=== PATIENT | female | born 1960 | race Caucasian/White ===

== ENCOUNTER → 2021-02-15 01:46 | Outpatient (CLI) | payer BC, SELFPAY ==
[2021-02-15 19:55] LABS: SARS-CoV-2 RNA PCR Negative
== END ==
PROVIDERS: PCP Family Medicine; Visit Provider Internal Medicine Gastroenterology
DX: Z01.812 Encounter for preprocedural laboratory examination (principal); Z20.822 Contact with and (suspected) exposure to COVID-19
CPT/HCPCS: C9803; U0003; U0005

== ENCOUNTER 2021-02-18 03:05 | Day surgery (SDC) | payer BC, SELFPAY ==
[2021-02-06 15:00] VITALS: BMI 29.4
[2021-02-18 06:19] VITALS: BP 143/86; PULSE 75; RESP 18; TEMP 36.8; O2SAT 98; BMI 28.2
[2021-02-18] MEDS: LACTATED RINGERS 1,000 ML 150 ML IV CONT (06:32)
--- NOTE | 2021-02-18 07:05 | WPDANESEPPF ---
Anes - Initial Pre Proc Eval Procedure: Operation Date: 02/18/21 07:30 Proposed Procedures p Screening Colonoscopy - Albaro Fountain MD Date/Time: 02/18/21 07:05 Surgeon: Albaro Fountain MD Pre Op Diagnosis: Neoplasm Screening Patient Data Age: 60 Gender: F Height: 5 ft 2 in Weight: 70 kg Last Vital Signs Temp 98.2 F 02/18/21 06:19 Pulse 75 02/18/21 06:19 Resp 18 02/18/21 06:19 BP 143/86 H 02/18/21 06:19 Pulse Ox 98 02/18/21 06:19 Allergies Allergy/AdvReac Type Severity Reaction Status Date / Time Penicillins Allergy Unknown Hives Verified 02/18/21 06:18 Home Medications Medication Instructions Recorded Confirmed Type aspirin 81 mg tablet,delayed 81 mg PO DAILY 11/15/19 02/06/21 History release cholecalciferol (vitamin D3) 25 mcg PO DAILY 02/06/21 02/06/21 History [Vitamin D3] cyanocobalamin (vitamin B-12) 50 mcg PO DAILY 02/06/21 02/06/21 History pyridoxine (vitamin B6) [Vitamin 25 mg PO DAILY 02/06/21 02/06/21 History B-6] Patient hx anesthesia problems: none Family hx anesthesia problems: none PMFSH Past Medical History Medical History Nicotine dependence, unspecified, in remission quit age 23 Personal history of colonic polyps colonoscopy 2016/ repeat in 5-7 yrs Primary osteoarthritis of right foot Tarsal tunnel syndrome, bilateral lower limbs Trigger finger, left ring finger Family History Family History Mother Patient's mother is Family history of cardiovascular disease Father Family history of cardiovascular disease Other Fam hx-ischem heart disease Family history of malignant melanoma Social History Social History Smoking packs per day: 1 Smoking cigarettes per day: 20.0 Years smoked: 3 Smoking pack-years: 3.00 Smoking status: Former smoker Tobacco type: cigarettes Smoking end date: 09/27/86 Alcohol intake: current Drinks per week: 5 Living arrangements: with family Spiritual care concerns: No Anes - Eval Final PreProcedure Day of Procedure 02/18/21 07:05 Patient weight: normal Heart: regular rate and rhythm Lungs: clear to auscultation Airway: Mallampati scale class II Neurological: alert and oriented Last oral intake: >/= 8 hours ASA classification: II Emergent: no Anesthetic plan: proceed Anesthesia type and monitoring: general GIVS and standard monitoring Informed Consent: The patient's anesthetic plan and its attendant risks and benefits were discussed with the patient/family/POA. Questions were solicited and answers provided to the satisfaction of the patient/family/POA.
--- NOTE | 2021-02-18 07:22 | PM.HPGS ---
History of Present Illness History of Present Illness Consent: Risks, benefits, and alternatives have been discussed and questions answered. Patient agrees to proceed with procedure. Chief complaint: Neoplasm Screening Narrative: Estephania Lebron is a 60 year old female Undergoing colon cancer screening. She had a polyp removed 5 years ago Review of Systems Review of Systems: All systems reviewed & are unremarkable except as noted in HPI and below PMFSH Past Medical History Medical History Nicotine dependence, unspecified, in remission quit age 23 Personal history of colonic polyps colonoscopy 2016/ repeat in 5-7 yrs Primary osteoarthritis of right foot Tarsal tunnel syndrome, bilateral lower limbs Trigger finger, left ring finger Family History Family History Mother Patient's mother is Family history of cardiovascular disease Father Family history of cardiovascular disease Other Fam hx-ischem heart disease Family history of malignant melanoma Social History Social History Smoking packs per day: 1 Smoking cigarettes per day: 20.0 Years smoked: 3 Smoking pack-years: 3.00 Smoking status: Former smoker Tobacco type: cigarettes Smoking end date: 09/27/86 Alcohol intake: current Drinks per week: 5 Living arrangements: with family Spiritual care concerns: No Meds Home Medications and Allergies Home Medications Medication Instructions Recorded Confirmed Type aspirin 81 mg tablet,delayed 81 mg PO DAILY 11/15/19 02/06/21 History release cholecalciferol (vitamin D3) 25 mcg PO DAILY 02/06/21 02/06/21 History [Vitamin D3] cyanocobalamin (vitamin B-12) 50 mcg PO DAILY 02/06/21 02/06/21 History pyridoxine (vitamin B6) [Vitamin 25 mg PO DAILY 02/06/21 02/06/21 History B-6] Allergies Allergy/AdvReac Type Severity Reaction Status Date / Time Penicillins Allergy Unknown Hives Verified 02/18/21 06:18 Vital Signs Vital Signs - 24 hr 02/18/21 06:19 Temperature 36.8 C Pulse Rate 75 Respiratory Rate 18 Blood Pressure 143/86 H Pulse Oximetry 98 Exam Resp: Auscultation: clear to auscultation bilaterally Cardio: Rate: regular rate Rhythm: regular rhythm GI: GI Palp: Yes Soft to palpation and No Tenderness to palpation present (GI) Assessment and Plan Assessment and plan (1) Colon cancer screening: Code(s): Z12.11 - Encounter for screening for malignant neoplasm of colon Status: Acute Assessment and Plan: Colonoscopy with possible biopsy or polypectomy or cautery or injection of substances.
[2021-02-18 07:38] VITALS: BP 106/65; PULSE 70; RESP 17; O2SAT 100
[2021-02-18 07:48] VITALS: BP 118/66; PULSE 69; RESP 20; O2SAT 100
[2021-02-18 07:58] VITALS: BP 123/67; PULSE 47; RESP 22; O2SAT 100
== END 2021-02-18 08:12 | disposition home or self-care (01) ==
PROVIDERS: PCP Family Medicine; Visit Provider Internal Medicine Gastroenterology
PROC: 0DJD8ZZ Inspection of Lower Intestinal Tract, Via Natural or Artificial Opening Endoscopic (ICD-10-PCS; CPT 45378; principal; 2021-02-18 07:30)
DX: Z12.11 Encounter for screening for malignant neoplasm of colon (principal); Z86.010 Personal history of colon polyps; Z87.891 Personal history of nicotine dependence; M19.071 Primary osteoarthritis, right ankle and foot; G57.53 Tarsal tunnel syndrome, bilateral lower limbs; M65.342 Trigger finger, left ring finger
CPT/HCPCS: 45378; J2704; J7120

== ENCOUNTER → 2021-05-07 14:13 | Outpatient (CLI) | payer BC, SELFPAY ==
--- NOTE | ~2021-05-07 | XR_ITS ---
XR chest 2V w LT decubitus DATE: 05/07/2021 14:40 INDICATION: Left scapular pain with breathing. Shortness of breath for months. Dizziness. Nose bleed. Central anterior chest burning sensation for 6 months intermittently. TECHNIQUE: PA and lateral views. Left lateral decubitus chest radiograph COMPARISON: None FINDINGS: Normal heart size. No hilar or mediastinal enlargement. No pulmonary infiltrate or consolidation, pleural effusion or pulmonary vascular congestion or pneumo thorax. Included skeletal structures are unremarkable. IMPRESSION: No active cardiopulmonary disease Reviewed, dictated and finalized at [facility] Reviewed, dictated and finalized at [facility].
== END ==
PROVIDERS: PCP Family Medicine; Visit Provider Family Medicine
DX: R09.1 Pleurisy (principal); R06.2 Wheezing
CPT/HCPCS: 71047

== ENCOUNTER 2021-06-11 08:04 | Outpatient (CLI) | payer BC, SELFPAY ==
--- NOTE | 2021-06-11 08:53 | EST_ITS ---
Patient Info Name: Estephania Lebron Age: 60 years : 1960 Gender: Female Ht: 62 in Wt: 160 lbs BSA: 1.81 m2 Exam Date: 06/11/2021 9:23 AM Exam Location: [facility] Patient Status: Outpatient Admit Date: 06/11/2021 Staff Ordering Physician: Nila Becerra MD Regional Education Coordinator: Sami Roca RDCS, RT Attending Provider: DR. GRAY Referring Physician: Mariam BENNETT; Exam Type: CA stress echo Study Info Indications R07.9 - Chest pain, unspecified Summary 1. 1. Negative Óscar exercise stress test for ischemic ST changes by ECG criteria. 2. 2. Good functional capacity, achieving 10.9 METs of workload. 3. 3. Appropriate HR response to exercise. 4. 4. Appropriate HR recovery at 1 minute post exercise. 5. 5. Negative stress echocardiogram for ischemia by wall motion analysis. 6. 6. Patient informed of the above results. Stress Echo Findings Left Ventricle Appropriate increase in LV endocardial thickening with systole. Appropriate augmentation of contractility with systole. No wall motion abnormality. Left Ventricle Normal LV systolic function, no wall motion abnormality. Protocol: Óscar Stress ECG Details Stage: REST Duration (min): 0 min : 11 sec Speed (mph): 0.0 Grade (%): 0 HR (bpm): --- SBP (mmHg): --- DBP (mmHg): --- METS: --- Stage: REST Duration (min): 1 min : 5 sec Speed (mph): 0.0 Grade (%): 0 HR (bpm): 54 SBP (mmHg): 123 DBP (mmHg): 67 METS: --- Stage: REST Duration (min): 16 min : 21 sec Speed (mph): 0.0 Grade (%): 0 HR (bpm): 59 SBP (mmHg): 123 DBP (mmHg): 67 METS: --- Stage: STAGE 1 Duration (min): 1 min : 0 sec Speed (mph): 1.7 Grade (%): 10 HR (bpm): 82 SBP (mmHg): 123 DBP (mmHg): 67 METS: --- Stage: STAGE 1 Duration (min): 2 min : 0 sec Speed (mph): 1.7 Grade (%): 10 HR (bpm): 95 SBP (mmHg): 123 DBP (mmHg): 67 METS: --- Stage: STAGE 1 Duration (min): 3 min : 0 sec Speed (mph): 1.7 Grade (%): 10 HR (bpm): 93 SBP (mmHg): 143 DBP (mmHg): 72 METS: --- Stage: STAGE 2 Duration (min): 1 min : 0 sec Speed (mph): 2.5 Grade (%): 12 HR (bpm): 100 SBP (mmHg): 143 DBP (mmHg): 72 METS: --- Stage: STAGE 2 Duration (min): 2 min : 0 sec Speed (mph): 2.5 Grade (%): 12 HR (bpm): 102 SBP (mmHg): 155 DBP (mmHg): 73 METS: --- Stage: STAGE 2 Duration (min): 3 min : 0 sec Speed (mph): 2.5 Grade (%): 12 HR (bpm): 103 SBP (mmHg): 155 DBP (mmHg): 73 METS: --- Stage: STAGE 3 Duration (min): 1 min : 0 sec Speed (mph): 3.4 Grade (%): 14 HR (bpm): 120 SBP (mmHg): 163 DBP (mmHg): 73 METS: --- Stage: STAGE 3 Duration (min): 2 min : 0 sec Speed (mph): 3.4 Grade (%): 14 HR (bpm): 129 SBP (mmHg): 163 DBP (mmHg): 73 METS: --- Stage: STAGE 3 Durat
--- NOTE | 2021-06-11 12:24 | WPDPFTINT ---
PFT Procedure Performed PFT Procedure Performed Plethysmography (Lung Vol) Diffusing Cap (DLCO) Flow Vol Loop Spirometry w/o Bronchodil PFT Interpretation This is a pulmonary function test with spirometry, plethysmography and diffusing capacity. The test was performed and results interpreted in accordance with the 2019 and 2005 ATS/ERS Task Force guidelines respectively using the Global Lung Function Initiative-2012 reference equations. Patient demonstrated good effort and cooperation. Reproducibility criteria were met. The quality of the spirometry maneuver was Grade A. Findings: Spirometry: Contour the inspiratory and expiratory flow tracing are normal. The FVC is 3.49 L, 117% predicted. The FEV1 is 2.38 L, 101% predicted. The FEV1: FVC ratio 68%. Plethysmography: The total lung capacity is 4.95 L, 105% predicted. Functional residual capacity is 2.50 L, 94% predicted. The residual volume is 1.46 L, 79% predicted. Diffusing capacity: The absolute diffusion capacity is 19.2, 92% predicted. The diffusing capacity corrected for alveolar volume is 4.38, 96% predicted. Impression: The spirometry is normal without evidence of an obstructive abnormality. The lung volumes are normal. The diffusing capacity is normal. There are no prior studies for comparison
== END 2021-06-11 08:05 | disposition home or self-care (01) ==
PROVIDERS: PCP Family Medicine; Visit Provider Family Medicine
DX: R07.89 Other chest pain (principal); R06.00 Dyspnea, unspecified; Z82.49 Family history of ischemic heart disease and other diseases of the circulatory system
CPT/HCPCS: 93351; 94375; 94726; 94729